=== PATIENT | female | born 1955 | race Caucasian/White ===

== ENCOUNTER 2017-02-28 19:29 | Emergency (ER) | payer MEDICARE ==
[~2017-02-28] VITALS: Ht 165.1 cm; Wt 61.2 kg
[~2017-02-28 19:29] MED LIST: ANAPROX DS550 MG PO; CYCLOBENZAPRINE10 MG PO; FLEXERIL5 MG PO; FOSINOPRIL SODI20 MG PO; HYDROCODONE BIT1 T11 PO; MONOPRIL PO; MONOPRIL10 MG PO; MOTRIN600 MG PO; NAPROSYN500 MG PO; NORVASC2.5 MG PO; PENICILLIN VK500 MG PO; PENICILLIN-VK500 MG PO; PENICILLIN250 MG PO; PREDNICOT20 MG PO; PREDNISONE20 M1 PO
[2017-02-28 19:36] VITALS: BP 165/93
[2017-02-28] MEDS ORDERED: CYCLOBENZAPRINE10 MG PO (19:49)
[2017-02-28] MEDS ORDERED: NAPROSYN500 MG PO (19:49)
== END 2017-02-28 20:09 | disposition home or self-care (01) ==
LOC: ED 19:29
DX: M25.512 Pain in left shoulder (principal); F17.200 Nicotine dependence, unspecified, uncomplicated; Z90.49 Acquired absence of other specified parts of digestive tract; Z98.890 Other specified postprocedural states; Z79.899 Other long term (current) drug therapy; Z88.2 Allergy status to sulfonamides

== ENCOUNTER → 2017-03-26 | Outpatient (CLI) | payer MEDICARE | END | disposition home or self-care (01) | LOC: RAD 17:40 | DX: M19.012 Primary osteoarthritis, left shoulder (principal) ==

== ENCOUNTER 2017-07-19 22:50 | Emergency (ER) | payer MEDICARE ==
[~2017-07-19] VITALS: Ht 165.1 cm; Wt 59.0 kg
--- NOTE | ~2017-07-19 | EKG ---
[place], [place] ELECTROCARDIOGRAM REPORT NAME: ADE MAY UNIT #: [id number] ROOM: DOCTOR: TARAH ARAMBULA MD BIRTHDATE: [birth year] DOS: 07/19/2017 TIME: 2353 hours. FINDINGS: 1. Normal sinus rhythm at 69 beats per minute. 2. The tracing is normal. 3. No previous tracing is available for comparison. TARAH ARAMBULA MD CM:EKGRPT:ELECTROCARDIOGRAM REPORT [id number] 1225 TARAH ARAMBULA MD
[2017-07-19 22:59] VITALS: BP 144/90
[2017-07-19 23:59] LABS: BASO # 0.1 10*3/uL (0.0-0.1); EOS # 0.1 10*3/uL (0.0-0.4); HEMATOCRIT 45.5 % (37.0-47.0); HEMOGLOBIN 14.7 g/dl (12.0-16.0); LYMPH # 2.4 10*3/uL (1.3-4.4); LYMPH % 21.4 % (27.0-41.0); MEAN CELL VOLUME 95.2 fl (81.0-99.0); MEAN CORPUSCULAR HGB 30.8 pg (27.0-31.0); MEAN CORPUSCULAR HGB CONC 32.3 g/dl (33.0-37.0); MEAN PLATELET VOLUME 10.6 fl (9.6-12.3); MONO # 0.7 10*3/uL (0.1-1.0); MONO % 6.4 % (3.0-9.0); NEUT % 69.8 % (47.0-73.0); PLATELET COUNT AUTOMATED 384 10*3/uL (130-400); RED BLOOD COUNT 4.78 10*6/uL (4.10-5.10); RED CELL DISTRI WIDTH 13.7 % (0-14.5); WHITE BLOOD COUNT 11.4 10*3/uL (4.8-10.8)
[2017-07-20 00:04] LABS: ACT PARTIAL THROMBO TIME 31.4 SECONDS (20.8-31.5)
[2017-07-20 00:11] LABS: ALBUMIN 3.7 gm/dl (3.1-4.5); ALKALINE PHOSPHATASE 130 U/L (45-117); BUN 8 mg/dl (7-24); CHLORIDE 106 mmol/L (98-107); CREATININE 1.07 mg/dL (0.55-1.02); LIPASE 98 U/L (73-393); POTASSIUM 3.8 mmol/L (3.5-5.1); SGOT/AST 17 IU/L (3-35); SGPT/ALT 22 U/L (12-78); SODIUM 138 mmol/L (136-145); TOTAL PROTEIN 7.6 gm/dL (6.4-8.2); TROPONIN I < 0.015 ng/ml (<0.045)
[2017-07-20 00:12] LABS: BILIRUBIN NEGATIVE (NEGATIVE); BLOOD NEGATIVE (NEGATIVE); CLARITY CLEAR (CLEAR); COLOR YELLOW (YELLOW); GLUCOSE NEGATIVE (NEGATIVE); KETONE NEGATIVE (NEGATIVE); LEUKO ESTERASE 1+ (NEGATIVE); NITRITE NEGATIVE (NEGATIVE); SPECIFIC GRAVITY <= 1.005 (1.005-1.030); UROBILINOGEN 0.2 E.U./dl (0.2-1.0)
[2017-07-20 00:21] LABS: EPITHELIAL CELLS 0-5
[2017-07-20] MEDS ORDERED: AMINOPHYLLIN200 MG PO (00:49)
== END 2017-07-20 01:03 | disposition home or self-care (01) ==
LOC: ED 22:50
PROVIDERS: Nurse Practitioner Family
DX: N39.0 Urinary tract infection, site not specified (principal); G89.29 Other chronic pain; K21.9 Gastro-esophageal reflux disease without esophagitis; I10 Essential (primary) hypertension; F17.200 Nicotine dependence, unspecified, uncomplicated; Z90.49 Acquired absence of other specified parts of digestive tract; Z88.2 Allergy status to sulfonamides; Z79.899 Other long term (current) drug therapy

== ENCOUNTER 2017-07-30 20:44 | Emergency (ER) | payer MEDICARE ==
[~2017-07-30] VITALS: Wt 61.2 kg
[~2017-07-30 20:44] MED LIST changes: +AMINOPHYLLIN200 MG PO
[2017-07-30 21:03] VITALS: BP 140/64
[2017-07-30 21:25] LABS: BASO # 0.1 10*3/uL (0.0-0.1); BASO % 0.8 % (0.0-1.0); EOS # 0.1 10*3/uL (0.0-0.4); EOS % 1.2 % (1.0-4.0); HEMATOCRIT 43.2 % (37.0-47.0); HEMOGLOBIN 14.3 g/dl (12.0-16.0); LYMPH # 2.1 10*3/uL (1.3-4.4); LYMPH % 21.3 % (27.0-41.0); MEAN CELL VOLUME 94.3 fl (81.0-99.0); MEAN CORPUSCULAR HGB 31.2 pg (27.0-31.0); MEAN CORPUSCULAR HGB CONC 33.1 g/dl (33.0-37.0); MEAN PLATELET VOLUME 10.6 fl (9.6-12.3); MONO # 0.6 10*3/uL (0.1-1.0); MONO % 5.9 % (3.0-9.0); NEUT # 6.9 10*3/uL (2.3-7.9); NEUT % 70.6 % (47.0-73.0); PLATELET COUNT AUTOMATED 363 10*3/uL (130-400); RED BLOOD COUNT 4.58 10*6/uL (4.10-5.10); RED CELL DISTRI WIDTH 13.7 % (0-14.5); WHITE BLOOD COUNT 9.7 10*3/uL (4.8-10.8)
[2017-07-30 21:37] LABS: BILIRUBIN NEGATIVE (NEGATIVE); BLOOD NEGATIVE (NEGATIVE); CLARITY CLEAR (CLEAR); COLOR YELLOW (YELLOW); GLUCOSE NEGATIVE (NEGATIVE); KETONE NEGATIVE (NEGATIVE); LEUKO ESTERASE TRACE (NEGATIVE); NITRITE NEGATIVE (NEGATIVE); PH 6.5 (5.0-9.0); UROBILINOGEN 0.2 E.U./dl (0.2-1.0)
[2017-07-30 21:42] LABS: BACTERIA TRACE
[2017-07-30 21:42] LABS: ALBUMIN 3.8 gm/dl (3.1-4.5); ALKALINE PHOSPHATASE 118 U/L (45-117); BUN 11 mg/dl (7-24); CHLORIDE 105 mmol/L (98-107); CREATININE 0.84 mg/dL (0.55-1.02); LIPASE 123 U/L (73-393); POTASSIUM 4.1 mmol/L (3.5-5.1); SGOT/AST 27 IU/L (3-35); SGPT/ALT 33 U/L (12-78); SODIUM 141 mmol/L (136-145); TOTAL PROTEIN 7.4 gm/dL (6.4-8.2)
[2017-07-30 21:44] LABS: TROPONIN I < 0.015 ng/ml (<0.045)
[2017-07-30] MEDS ORDERED: Zofran4 MG SL (23:14)
== END 2017-07-30 23:15 | disposition home or self-care (01) ==
LOC: ED 20:44
PROVIDERS: Student in an Organized Health Care Education/Training Program
DX: R10.84 Generalized abdominal pain (principal); R11.10 Vomiting, unspecified; G89.29 Other chronic pain; K21.9 Gastro-esophageal reflux disease without esophagitis; I10 Essential (primary) hypertension; F17.200 Nicotine dependence, unspecified, uncomplicated; Z90.49 Acquired absence of other specified parts of digestive tract; Z98.890 Other specified postprocedural states; Z88.2 Allergy status to sulfonamides

== ENCOUNTER 2017-09-06 22:45 | Emergency (ER) | payer MEDICARE ==
[~2017-09-06] VITALS: Wt 61.2 kg
[~2017-09-06 22:45] MED LIST changes: +Zofran4 MG SL
[2017-09-06 23:05] LABS: BILIRUBIN NEGATIVE (NEGATIVE); BLOOD NEGATIVE (NEGATIVE); CLARITY CLEAR (CLEAR); COLOR YELLOW (YELLOW); GLUCOSE NEGATIVE (NEGATIVE); KETONE NEGATIVE (NEGATIVE); LEUKO ESTERASE TRACE (NEGATIVE); NITRITE NEGATIVE (NEGATIVE); UROBILINOGEN 0.2 E.U./dl (0.2-1.0)
[2017-09-06 23:17] LABS: BASO # 0.1 10*3/uL (0.0-0.1); BASO % 0.8 % (0.0-1.0); EOS # 0.1 10*3/uL (0.0-0.4); EOS % 1.3 % (1.0-4.0); HEMATOCRIT 46.1 % (37.0-47.0); HEMOGLOBIN 15.1 g/dl (12.0-16.0); LYMPH # 2.6 10*3/uL (1.3-4.4); MEAN CELL VOLUME 94.3 fl (81.0-99.0); MEAN CORPUSCULAR HGB 30.9 pg (27.0-31.0); MEAN CORPUSCULAR HGB CONC 32.8 g/dl (33.0-37.0); MEAN PLATELET VOLUME 10.6 fl (9.6-12.3); MONO # 0.6 10*3/uL (0.1-1.0); MONO % 6.4 % (3.0-9.0); NEUT # 6.5 10*3/uL (2.3-7.9); NEUT % 65.3 % (47.0-73.0); PLATELET COUNT AUTOMATED 400 10*3/uL (130-400); RED BLOOD COUNT 4.89 10*6/uL (4.10-5.10); RED CELL DISTRI WIDTH 13.6 % (0-14.5); WHITE BLOOD COUNT 9.9 10*3/uL (4.8-10.8)
[2017-09-06 23:17] LABS: BACTERIA TRACE; EPITHELIAL CELLS 21-30; RBC 0-2 rbc/hpf (0-2); WBC 21-30 wbc/hpf (0-5)
[2017-09-06 23:32] LABS: ALKALINE PHOSPHATASE 132 U/L (45-117); BUN 11 mg/dl (7-24); CHLORIDE 103 mmol/L (98-107); CREATININE 0.95 mg/dL (0.55-1.02); POTASSIUM 4.1 mmol/L (3.5-5.1); SGOT/AST 21 IU/L (3-35); SGPT/ALT 31 U/L (12-78); SODIUM 139 mmol/L (136-145); TOTAL PROTEIN 7.9 gm/dL (6.4-8.2)
[2017-09-06 23:35] LABS: LIPASE 135 U/L (73-393)
[2017-09-07] VITALS: BP 124/79
[2017-09-07] MEDS ORDERED: COLACE100 MG PO
[2017-09-07] MEDS ORDERED: MACROBID100 M1 PO
== END 2017-09-07 00:12 | disposition home or self-care (01) ==
LOC: ED 22:45
PROVIDERS: Physician Assistant
DX: K59.00 Constipation, unspecified (principal); N39.0 Urinary tract infection, site not specified; F17.200 Nicotine dependence, unspecified, uncomplicated; Z90.49 Acquired absence of other specified parts of digestive tract; Z98.890 Other specified postprocedural states; Z88.2 Allergy status to sulfonamides; Z79.899 Other long term (current) drug therapy

== ENCOUNTER 2017-11-27 22:57 | Emergency (ER) | payer MEDICARE ==
[~2017-11-27] VITALS: Ht 165.1 cm; Wt 65.8 kg
[~2017-11-27 22:57] MED LIST changes: +COLACE100 MG PO; +MACROBID100 M1 PO
[2017-11-27 23:00] VITALS: BP 168/96
[2017-11-27 23:18] LABS: BILIRUBIN NEGATIVE (NEGATIVE); BLOOD NEGATIVE (NEGATIVE); CLARITY CLEAR (CLEAR); COLOR YELLOW (YELLOW); GLUCOSE NEGATIVE (NEGATIVE); KETONE NEGATIVE (NEGATIVE); LEUKO ESTERASE 1+ (NEGATIVE); NITRITE NEGATIVE (NEGATIVE); PH 5.5 (5.0-9.0); SPECIFIC GRAVITY <= 1.005 (1.005-1.030); UROBILINOGEN 0.2 E.U./dl (0.2-1.0)
[2017-11-27 23:42] LABS: BACTERIA TRACE
[2017-11-27] MEDS ORDERED: MACROBID100 M1 PO (23:52)
[2018-01-01] MEDS ORDERED: CEPHALEXIN500 M1 PO (00:04)
== END 2017-11-28 00:13 | disposition home or self-care (01) ==
LOC: ED 22:57
PROVIDERS: Nurse Practitioner Family
DX: N39.0 Urinary tract infection, site not specified (principal); I10 Essential (primary) hypertension; K21.9 Gastro-esophageal reflux disease without esophagitis; Z88.2 Allergy status to sulfonamides

== ENCOUNTER 2017-12-26 21:31 | Emergency (ER) | payer MEDICARE ==
[~2017-12-26] VITALS: Ht 165.1 cm; Wt 63.5 kg
[2017-12-26 21:31] VITALS: BP 177/94
[2017-12-26 21:44] LABS: BILIRUBIN NEGATIVE (NEGATIVE); BLOOD NEGATIVE (NEGATIVE); CLARITY CLEAR (CLEAR); COLOR YELLOW (YELLOW); GLUCOSE NEGATIVE (NEGATIVE); KETONE NEGATIVE (NEGATIVE); LEUKO ESTERASE 1+ (NEGATIVE); NITRITE NEGATIVE (NEGATIVE); PH 5.5 (5.0-9.0); SPECIFIC GRAVITY <= 1.005 (1.005-1.030); UROBILINOGEN 0.2 E.U./dl (0.2-1.0)
[2017-12-26 21:49] LABS: BACTERIA 1+
[2017-12-26 21:50] LABS: WBC 16-20 wbc/hpf (0-5)
[2017-12-26] MEDS ORDERED: AUGMENTIN 875875 MG PO (22:45)
[2018-01-01] MEDS ORDERED: CEPHALEXIN500 M1 PO (00:04)
== END 2017-12-26 22:51 | disposition home or self-care (01) ==
LOC: ED 21:31
PROVIDERS: Emergency Medicine
DX: N39.0 Urinary tract infection, site not specified (principal); F17.200 Nicotine dependence, unspecified, uncomplicated; G89.29 Other chronic pain; I10 Essential (primary) hypertension; K21.9 Gastro-esophageal reflux disease without esophagitis; Z90.49 Acquired absence of other specified parts of digestive tract; Z98.890 Other specified postprocedural states; Z88.2 Allergy status to sulfonamides; Z79.899 Other long term (current) drug therapy

== ENCOUNTER 2017-12-31 21:18 | Emergency (ER) | payer MEDICARE ==
[~2017-12-31] VITALS: Ht 165.1 cm; Wt 63.5 kg
[~2017-12-31 21:18] MED LIST changes: +AUGMENTIN 875875 MG PO
[2017-12-31 21:21] VITALS: BP 152/90
[2018-01-01] MEDS ORDERED: CEPHALEXIN500 M1 PO (00:04)
== END 2017-12-31 23:51 | disposition home or self-care (01) ==
LOC: ED 21:18
DX: S99.812A Other specified injuries of left ankle, initial encounter (principal); F17.200 Nicotine dependence, unspecified, uncomplicated; Z90.49 Acquired absence of other specified parts of digestive tract; Z98.890 Other specified postprocedural states; Z79.899 Other long term (current) drug therapy; Z88.2 Allergy status to sulfonamides; W22.03XA Walked into furniture, initial encounter; Y93.89 Activity, other specified; Y92.89 Other specified places as the place of occurrence of the external cause; Y99.9 Unspecified external cause status

== ENCOUNTER 2018-02-11 19:49 | Emergency (ER) | payer MEDICARE ==
[~2018-02-11] VITALS: Ht 165.1 cm; Wt 63.5 kg
[~2018-02-11 19:49] MED LIST changes: +CEPHALEXIN500 M1 PO
[2018-02-11 19:52] VITALS: BP 160/83
[2018-02-11] MEDS ORDERED: CYCLOBENZAPRINE10 MG PO (20:37)
[2018-02-11] MEDS ORDERED: PREDNISONE50 MG PO (20:37)
[2018-02-11] MEDS ORDERED: IBU800 MG PO (20:37)
== END 2018-02-11 21:05 | disposition home or self-care (01) ==
LOC: ED 19:49
DX: M54.5 Low back pain (principal); M54.2 Cervicalgia; K21.9 Gastro-esophageal reflux disease without esophagitis; I10 Essential (primary) hypertension; Z88.2 Allergy status to sulfonamides

== ENCOUNTER → 2018-04-23 | Outpatient (CLI) | payer MEDICARE ==
[~2018-04-23] MED LIST changes: +IBU800 MG PO; +PREDNISONE50 MG PO
== END ==
LOC: MAMMO 04-03 08:00 → CARD 13:19 → MAMMO 15:00
DX: I34.0 Nonrheumatic mitral (valve) insufficiency (principal); Z86.79 Personal history of other diseases of the circulatory system

== ENCOUNTER → 2018-07-09 | Outpatient (CLI) | payer MEDICARE | END | disposition home or self-care (01) | LOC: RAD 13:41 | DX: M54.5 Low back pain (principal) ==

== ENCOUNTER → 2018-08-08 | Outpatient (CLI) | payer MEDICARE | END | disposition home or self-care (01) | LOC: MAMMO 09:15 | DX: Z12.31 Encounter for screening mammogram for malignant neoplasm of breast (principal) ==

== ENCOUNTER → 2019-01-20 | Outpatient (CLI) | payer MEDICARE | END | disposition home or self-care (01) | LOC: RAD 13:42 | DX: M16.11 Unilateral primary osteoarthritis, right hip (principal); R30.0 Dysuria ==

== ENCOUNTER 2019-04-21 19:00 | Emergency (ER) | payer MEDICARE ==
[~2019-04-21] VITALS: Ht 165.1 cm; Wt 63.5 kg
[2019-04-21 19:00] VITALS: BP 127/72
[2019-04-21 20:11] LABS: BILIRUBIN NEGATIVE (NEGATIVE); BLOOD NEGATIVE (NEGATIVE); CLARITY CLEAR (CLEAR); COLOR YELLOW (YELLOW); GLUCOSE NEGATIVE (NEGATIVE); KETONE NEGATIVE (NEGATIVE); LEUKO ESTERASE TRACE (NEGATIVE); NITRITE NEGATIVE (NEGATIVE); SPECIFIC GRAVITY <= 1.005 (1.005-1.030)
[2019-04-21 20:19] LABS: BACTERIA TRACE; RBC 0-2 rbc/hpf (0-2)
[2019-04-21] MEDS ORDERED: VIBRAMYCIN100 MG PO (20:27)
== END 2019-04-21 20:29 | disposition home or self-care (01) ==
LOC: ED 19:00
PROVIDERS: Emergency Medicine
DX: R30.0 Dysuria (principal); M54.5 Low back pain; K21.9 Gastro-esophageal reflux disease without esophagitis; I10 Essential (primary) hypertension; G89.29 Other chronic pain; Z88.2 Allergy status to sulfonamides; Z79.899 Other long term (current) drug therapy; Z90.49 Acquired absence of other specified parts of digestive tract; Z87.891 Personal history of nicotine dependence

== ENCOUNTER 2019-09-21 09:58 | Emergency (ER) | payer MEDICARE ==
[~2019-09-21] VITALS: Ht 165.1 cm; Wt 63.5 kg
[~2019-09-21 09:58] MED LIST changes: +VIBRAMYCIN100 MG PO
[2019-09-21 10:04] VITALS: BP 156/83
[2019-09-21 10:30] LABS: BASO # 0.1 10*3/uL (0.0-0.1); EOS # 0.2 10*3/uL (0.0-0.4); EOS % 2.4 % (1.0-4.0); HEMATOCRIT 44.9 % (37.0-47.0); HEMOGLOBIN 14.6 g/dl (12.0-16.0); LYMPH # 1.8 10*3/uL (1.3-4.4); LYMPH % 21.9 % (27.0-41.0); MEAN CORPUSCULAR HGB 31.5 pg (27.0-31.0); MEAN CORPUSCULAR HGB CONC 32.5 g/dl (33.0-37.0); MEAN PLATELET VOLUME 10.5 fl (9.6-12.3); MONO # 0.5 10*3/uL (0.1-1.0); NEUT # 5.6 10*3/uL (2.3-7.9); NEUT % 68.5 % (47.0-73.0); PLATELET COUNT AUTOMATED 375 10*3/uL (130-400); RED BLOOD COUNT 4.63 10*6/uL (4.10-5.10); RED CELL DISTRI WIDTH 13.5 % (0-14.5); WHITE BLOOD COUNT 8.2 10*3/uL (4.8-10.8)
[2019-09-21] MEDS ORDERED: TYLENOL325 M1 PO (11:24)
== END 2019-09-21 11:31 | disposition home or self-care (01) ==
LOC: ED 09:58
PROVIDERS: Emergency Medicine
DX: B34.9 Viral infection, unspecified (principal); K21.9 Gastro-esophageal reflux disease without esophagitis; I10 Essential (primary) hypertension; F17.200 Nicotine dependence, unspecified, uncomplicated; Z88.2 Allergy status to sulfonamides

== ENCOUNTER 2019-12-27 19:15 | Emergency (ER) | payer MEDICARE ==
[~2019-12-27] VITALS: Ht 165.1 cm; Wt 65.8 kg
[~2019-12-27 19:15] MED LIST changes: +TYLENOL325 M1 PO
[2019-12-27 20:58] LABS: BASO # 0.1 10*3/uL (0.0-0.1); BASO % 0.4 % (0.0-1.0); EOS # 0.1 10*3/uL (0.0-0.4); EOS % 0.4 % (1.0-4.0); HEMATOCRIT 47.7 % (37.0-47.0); LYMPH # 1.3 10*3/uL (1.3-4.4); LYMPH % 5.8 % (27.0-41.0); MEAN CELL VOLUME 95.4 fl (81.0-99.0); MEAN CORPUSCULAR HGB 31.4 pg (27.0-31.0); MEAN CORPUSCULAR HGB CONC 32.9 g/dl (33.0-37.0); MEAN PLATELET VOLUME 10.9 fl (9.6-12.3); MONO # 1.3 10*3/uL (0.1-1.0); MONO % 5.7 % (3.0-9.0); NEUT # 19.4 10*3/uL (2.3-7.9); NEUT % 87.1 % (47.0-73.0); PLATELET COUNT AUTOMATED 406 10*3/uL (130-400); RED CELL DISTRI WIDTH 13.8 % (0-14.5); WHITE BLOOD COUNT 22.2 10*3/uL (4.8-10.8)
[2019-12-27 21:15] LABS: ALBUMIN 3.5 gm/dl (3.1-4.5); ALKALINE PHOSPHATASE 142 U/L (45-117); BUN 12 mg/dl (7-24); CHLORIDE 112 mmol/L (98-107); CREATININE 1.05 mg/dL (0.55-1.02); LIPASE 107 U/L (73-393); POTASSIUM 5.3 mmol/L (3.5-5.1); SGOT/AST 46 IU/L (3-35); SGPT/ALT 64 U/L (12-78); SODIUM 138 mmol/L (136-145); TOTAL PROTEIN 7.8 gm/dL (6.4-8.2)
[2019-12-27 21:17] LABS: TROPONIN I < 0.015 ng/ml (<0.045)
[2019-12-27 23:12] LABS: BILIRUBIN NEGATIVE (NEGATIVE); BLOOD NEGATIVE (NEGATIVE); CLARITY SL CLOUDY (CLEAR); COLOR YELLOW (YELLOW); GLUCOSE NEGATIVE (NEGATIVE); KETONE NEGATIVE (NEGATIVE); LEUKO ESTERASE 1+ (NEGATIVE); NITRITE NEGATIVE (NEGATIVE); SPECIFIC GRAVITY 1.025 (1.005-1.030); UROBILINOGEN 0.2 E.U./dl (0.2-1.0)
[2019-12-27 23:15] LABS: EPITHELIAL CELLS 41-50
[2019-12-27 23:16] LABS: BACTERIA 1+
[2019-12-28] MEDS ORDERED: ZOFRAN4 MG PO (01:27)
[2019-12-28 01:43] VITALS: BP 136/88
== END 2019-12-28 01:51 | disposition home or self-care (01) ==
LOC: ED 19:15
PROVIDERS: Emergency Medicine Emergency Medical Services
DX: R11.10 Vomiting, unspecified (principal); K21.9 Gastro-esophageal reflux disease without esophagitis; I10 Essential (primary) hypertension; Z88.2 Allergy status to sulfonamides; Z79.899 Other long term (current) drug therapy

== ENCOUNTER 2021-10-18 12:56 | Emergency (ER) | payer MEDICARE ==
[~2021-10-18] VITALS: Ht 165.1 cm; Wt 59.0 kg
[~2021-10-18 12:56] MED LIST changes: +ZOFRAN4 MG PO
[2021-10-18 13:03] VITALS: BP 125/64
[2021-10-18] MEDS ORDERED: PREDNISONE10 MG PO (14:45)
[2021-10-18] MEDS ORDERED: CYCLOBENZAPRINE10 MG PO (14:45)
== END 2021-10-18 14:54 | disposition home or self-care (01) ==
LOC: ED 12:56
DX: S86.912A Strain of unspecified muscle(s) and tendon(s) at lower leg level, left leg, initial encounter (principal); Z88.2 Allergy status to sulfonamides; Z90.49 Acquired absence of other specified parts of digestive tract; Z98.890 Other specified postprocedural states; Z87.891 Personal history of nicotine dependence; X58.XXXA Exposure to other specified factors, initial encounter; Y93.89 Activity, other specified; Y92.89 Other specified places as the place of occurrence of the external cause; Y99.8 Other external cause status

== ENCOUNTER → 2021-11-11 | Outpatient (CLI) | payer MEDICARE ==
[~2021-11-11] MED LIST changes: +PREDNISONE10 MG PO
== END | disposition home or self-care (01) ==
LOC: ORTHO 01:16
PROVIDERS: ATTEND Orthopaedic Surgery
DX: M25.562 Pain in left knee (principal)

== ENCOUNTER → 2022-07-31 | Outpatient (CLI) | payer MEDICARE | END | disposition home or self-care (01) | LOC: MAMMO 09:31 | PROVIDERS: ATTEND Nurse Practitioner | DX: Z12.31 Encounter for screening mammogram for malignant neoplasm of breast (principal) ==

== ENCOUNTER 2023-04-10 21:44 | Emergency (ER) | payer MEDICARE ==
[~2023-04-10] VITALS: Ht 165.1 cm; Wt 61.2 kg
[2023-04-10 22:03] VITALS: BP 134/84
[2023-04-10] MEDS ORDERED: VIBRAMYCIN100 MG PO (22:26)
== END 2023-04-10 22:53 | disposition home or self-care (01) ==
LOC: ED 21:44
DX: S61.012A Laceration without foreign body of left thumb without damage to nail, initial encounter (principal); I10 Essential (primary) hypertension; Z88.2 Allergy status to sulfonamides; Z90.49 Acquired absence of other specified parts of digestive tract; Z98.890 Other specified postprocedural states; F17.200 Nicotine dependence, unspecified, uncomplicated; W26.8XXA Contact with other sharp object(s), not elsewhere classified, initial encounter; Y93.89 Activity, other specified; Y92.89 Other specified places as the place of occurrence of the external cause; Y99.8 Other external cause status

== ENCOUNTER 2023-04-29 10:55 | Emergency (ER) | payer MEDICARE ==
[~2023-04-29] VITALS: Ht 165.1 cm; Wt 59.0 kg
[2023-04-29 11:09] VITALS: BP 135/76
[2023-04-29] MEDS ORDERED: HYDROCODONE-AC1 EAC1 PO (13:13)
== END 2023-04-29 13:56 | disposition home or self-care (01) ==
LOC: ED 10:55
DX: S92.352A Displaced fracture of fifth metatarsal bone, left foot, initial encounter for closed fracture (principal); K21.9 Gastro-esophageal reflux disease without esophagitis; I10 Essential (primary) hypertension; Z88.2 Allergy status to sulfonamides; Z90.49 Acquired absence of other specified parts of digestive tract; Z98.890 Other specified postprocedural states; F17.200 Nicotine dependence, unspecified, uncomplicated; W19.XXXA Unspecified fall, initial encounter; Y93.89 Activity, other specified; Y92.89 Other specified places as the place of occurrence of the external cause; Y99.8 Other external cause status

== ENCOUNTER 2023-07-02 20:11 | Emergency (ER) | payer MEDICARE ==
[~2023-07-02] VITALS: Ht 165.1 cm; Wt 63.5 kg
[~2023-07-02 20:11] MED LIST changes: +HYDROCODONE-AC1 EAC1 PO
[2023-07-02] MEDS ORDERED: HYDROCHLOROTH12.5 M3 PO (21:03)
[2023-07-02 21:33] LABS: BASO # 0.1 10*3/uL (0.0-0.1); BASO % 1.1 % (0.0-1.0); EOS # 0.2 10*3/uL (0.0-0.4); HEMATOCRIT 44.3 % (37.0-47.0); LYMPH # 2.5 10*3/uL (1.3-4.4); MEAN CELL VOLUME 89.9 fl (81.0-99.0); MEAN CORPUSCULAR HGB 29.6 pg (27.0-31.0); MEAN PLATELET VOLUME 9.8 fl (9.6-12.3); MONO # 0.7 10*3/uL (0.1-1.0); MONO % 6.8 % (3.0-9.0); NEUT # 6.9 10*3/uL (2.3-7.9); NEUT % 65.9 % (47.0-73.0); PLATELET COUNT AUTOMATED 482 10*3/uL (130-400); RED BLOOD COUNT 4.93 10*6/uL (4.10-5.10); RED CELL DISTRI WIDTH 13.2 % (0-14.5); WHITE BLOOD COUNT 10.5 10*3/uL (4.8-10.8)
[2023-07-02 21:45] LABS: ACT PARTIAL THROMBO TIME 24.7 SECONDS (20.0-32.1)
[2023-07-02 21:55] LABS: ALKALINE PHOSPHATASE 107 U/L (46-116); BUN 14 mg/dl (9-23); CHLORIDE 104 mmol/L (98-107); LIPASE 51 U/L (12-53); POTASSIUM 3.8 mmol/L (3.4-5.1); SGPT/ALT 15 U/L (5-49); TOTAL PROTEIN 7.2 gm/dL (6.0-8.0)
[2023-07-02 23:23] VITALS: BP 124/74
== END 2023-07-02 23:57 | disposition home or self-care (01) ==
LOC: ED 20:11
PROVIDERS: Internal Medicine
DX: T50.2X1A Poisoning by carbonic-anhydrase inhibitors, benzothiadiazides and other diuretics, accidental (unintentional), initial encounter (principal); I10 Essential (primary) hypertension; F41.9 Anxiety disorder, unspecified; F17.200 Nicotine dependence, unspecified, uncomplicated; Z88.2 Allergy status to sulfonamides; Z79.899 Other long term (current) drug therapy; Z79.2 Long term (current) use of antibiotics; Z90.49 Acquired absence of other specified parts of digestive tract; Y92.89 Other specified places as the place of occurrence of the external cause

== ENCOUNTER → 2024-01-11 | Outpatient (CLI) | payer MEDICARE ==
[~2024-01-11] MED LIST changes: +HYDROCHLOROTH12.5 M3 PO
== END | disposition home or self-care (01) ==
LOC: ORTHO 01:20
PROVIDERS: ATTEND Orthopaedic Surgery
DX: M25.562 Pain in left knee (principal)

== ENCOUNTER → 2024-05-27 | Outpatient (CLI) | payer MEDICARE | END | disposition home or self-care (01) | LOC: MAMMO 04-21 13:30 | PROVIDERS: ATTEND Nurse Practitioner | DX: Z12.31 Encounter for screening mammogram for malignant neoplasm of breast (principal); R92.323 Mammographic fibroglandular density, bilateral breasts ==

== ENCOUNTER → 2025-06-15 | Outpatient (CLI) | payer MEDICARE | END | disposition home or self-care (01) | LOC: MAMMO 10:41 | PROVIDERS: ATTEND Nurse Practitioner | DX: Z12.31 Encounter for screening mammogram for malignant neoplasm of breast (principal); R92.313 Mammographic fatty tissue density, bilateral breasts ==